=== PATIENT | female | born 1970 | race American Indian/Alaskan Native ===

== ENCOUNTER 2016-11-01 06:06 | Day surgery (SDC) | payer OTHER ==
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
[~2016-11-01 06:06] MED LIST: ANCEF/STERILE WATER 2 GM/20 ML 2 GM/20 ML SYRINGE IV NR; NACL 0.9% 1000 ML 1,000 ML IV SCH; PEPCID PO NR; VERSED IV NR
[2016-11-01] MEDS ORDERED: NACL BACTERIOSTATIC INFILTRATI ONE (06:35)
--- NOTE | 2016-11-01 07:02 | Anesthesia Day of Surgery ---
Anesthesia Day of Surgery - Day of Surgery Patient Examined: Yes Patient H&P Reviewed: Yes Patient is NPO: Yes
[2016-11-01] MEDS ORDERED: DILAUDID IV PRN (07:03)
[2016-11-01] MEDS ORDERED: ZOFRAN IV PRN ×2 (07:03→09:24)
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
[2016-11-01 07:08] LABS: Hematocrit 40.1 % (30.3-42.9); Hemoglobin 13.3 gm/dl (10.1-14.3)
[2016-11-01] MEDS ORDERED: XYLOCAINE MPF 2% ONE (07:20)
[2016-11-01] MEDS ORDERED: DIPRIVAN 10 MG/ML IV ONE (07:20)
[2016-11-01] MEDS ORDERED: DILAUDID ONE (07:20)
[2016-11-01 07:43] LABS: Anion Gap 17 mmol/L; Blood Urea Nitrogen 14 mg/dL (7-17); Calcium 9.1 mg/dL (8.4-10.2); Carbon Dioxide 25 mmol/L (22-30); Glucose 111 mg/dL (65-100); Potassium 4.2 mmol/L (3.6-5.0); Sodium 140 mmol/L (137-145)
[2016-11-01] MEDS ORDERED: NACL 0.9% IR ONE (08:00)
[2016-11-01] MEDS ORDERED: TORADOL ONE (08:04)
[2016-11-01] MEDS ORDERED: ZOFRAN ONE ×2 (08:04→09:29)
[2016-11-01] MEDS ORDERED: NEO SYNEPHRINE ONE ×2 (08:08→08:11)
[2016-11-01] MEDS ORDERED: NACL 0.9% 1000 ML 1,000 ML ONE (08:17)
--- NOTE | 2016-11-01 08:46 | Post Anesthesia Evaluation ---
- Post Anesthesia Evaluation Patient Participated: Yes Airway Patent: Yes Stable Respiratory Function: Yes Nausea/Vomiting: No Temp > 96.8F: Yes Pain Manageable: Yes Adequeate Hydration: Yes Anesthesia Complications: No Block Receding Appropriately: Not Applicable Patient on Ventilator: No
--- NOTE | 2016-11-01 09:03 | Discharge Summary ---
Providers - Providers Date of discharge: 11/01/16 Attending physician: YANNI MICHAELS Primary care physician: SKEIN MERCERIZING MACHINE OPERATOR Hospitalization Condition: Good Disposition: DISCHARGED TO HOME OR SELFCARE - Discharge Diagnoses (1) Endometrial mass Status: Resolved (2) Irregular uterine bleeding Status: Resolved (3) Fibroids, intramural Status: Chronic Core Measure Documentation - Palliative Care Palliative Care/ Comfort Measures: Not Applicable - Core Measures Any of the following diagnoses?: none Exam - Constitutional Vitals: Temp Pulse Resp BP Pulse Ox 97.2 F L 65 10 L 121/72 100 11/01/16 08:35 11/01/16 08:50 11/01/16 08:50 11/01/16 08:50 11/01/16 08:50 General appearance: Present: no acute distress - Respiratory Respiratory effort: normal - Cardiovascular Rhythm: regular - Extremities Extremities: no ischemia, No edema - Abdominal Female genitourinary: Present: deferred - Integumentary Integumentary: Present: clear, warm, dry - Musculoskeletal Musculoskeletal: strength equal bilaterally Plan Activity: other (No sex, no driving x1week, ambulate ~1mile on your property a day. ) Weight Bearing Status: Weight Bear as Tolerated Diet: regular Follow up with: PRIMARY CARE, [Primary Care Provider] - 7 Days YANNI MICHAELS MD [Staff Physician] - (as scheduled)
[2016-11-01] MEDS: SUBLIMAZE IV PRN ×2 (09:16→09:26)
--- NOTE | 2016-11-01 09:27 | Operative Report ---
Operative Report Operative Report: Date of procedure: 11/01/2016 Pre-operative diagnosis: 1. Endometrial mass 2. Abnormal uterine bleeding Post-operative diagnosis: 1. Endometrial mass 2. Abnormal uterine bleeding Procedure name(s): 1. Diagnostic hysteroscopy with dilation and curettage 2. NovaSure ablation 3. Excision of endometrial mass Surgeon: Kim Pineda MD Head Of Insight: [] Anesthesia: Gen. anesthesia Findings: Uterine cavity length 5.5 cm, Uterine cavity width 4.7 cm Ablation time 78 seconds Power 142 W Complications: None EBL: Minimal Procedure: After risks, benefits, complications, consequences, and alternatives for this procedure were discussed the patient and she voiced understanding and her desire to proceed, she was taken to the OR and placed in the supine position. General anesthesia was induced. The patient was placed in the dorsal lithotomy position. Exam under anesthesia was unremarkable. She was then prepped and draped in the usual sterile fashion. Timeout was performed. A Esqueda catheter was introduced into the bladder with drainage of clear yellow urine. A bivalve speculum was introduced into the vagina. The anterior lip the cervix was grasped with a single-tooth tenaculum. The uterus was sounded to approximately 11 cm. The cervix was progressively dilated to allow the diagnostic hysteroscope. A large endometrial mass was noted attached to the anterior fundal aspect of the cavity. Using the myoma sure device the mass was excised. No obvious evidence perforation was noted. Uterine curettage was performed. The hysteroscope was introduced again. Again no evidence of perforation was noted. Cervical length was measured to be 5.5 cm. Therefore uterine cavity length was 5.5 cm. Cavity length on the NovaSure ablation device was set at 5.5 cm. The NovaSure device was then placed inside the uterine cavity. The array was released. Uterine cavity width was measured at 4.7 cm. Once the cavity integrity was confirmed, ablation was performed at 142 W of energy for 78 seconds. The device was removed. The hysteroscope was reintroduced into the uterine cavity. Good ablation of the cavity was noted. No obvious evidence of perforation was noted. The instruments were removed. The cervix was noted to be hemostatic once this tenaculum was removed. At which point the procedure was ended. Patient was taken to recovery room in stable condition. Saline solution was used along with the Aquilex management device. Fluid deficit was noted to be 200 mL. Counts were correct x3.
[2016-11-01] MEDS ORDERED: REGLAN IV PRN (10:36)
[2016-11-01] MEDS ORDERED: PHENERGAN PO ONE (10:39)
[2016-11-01] MEDS ORDERED: TRANSDERM-SCOP TD ONE (12:00)
[2016-11-01 12:20] VITALS: BP 126/80
[2016-11-01] MEDS ORDERED: VERSED IV SCH (13:00)
== END 2016-11-01 13:30 | disposition home or self-care (01) ==
LOC: OR 06:06
PROVIDERS: ATTEND Obstetrics & Gynecology
DX: N85.02 Endometrial intraepithelial neoplasia [EIN] (principal); N85.01 Benign endometrial hyperplasia; D64.9 Anemia, unspecified; Z98.51 Tubal ligation status; Z80.41 Family history of malignant neoplasm of ovary; Z80.3 Family history of malignant neoplasm of breast; Z83.3 Family history of diabetes mellitus
CPT/HCPCS: 36415; 58563; 80048; 81025; 84443; 85014; 85018; 88305; A4217; C1782; J0690; J1170; J1885; J2250; J2370; J2405; J2704; J3010; J7030; Q0169